=== PATIENT | male | born 1960 | race Caucasian/White ===

== ENCOUNTER → 2021-09-04 | Day surgery (SDC) | payer OTHER ==
[~2021-09-04] VITALS: Ht 182.9 cm; Wt 113.4 kg
[~2021-09-04] MED LIST: AMLODIPINE BESYL5 MG PO; COLESTIPOL HCL1 GM PO; LISINOPRIL-HCT1 EAC2 PO
== END | disposition home or self-care (01) ==
LOC: FAS 06:00
DX: R19.7 Diarrhea, unspecified (principal); D12.2 Benign neoplasm of ascending colon; D12.5 Benign neoplasm of sigmoid colon; D12.8 Benign neoplasm of rectum; K64.4 Residual hemorrhoidal skin tags; K57.30 Diverticulosis of large intestine without perforation or abscess without bleeding; Z80.0 Family history of malignant neoplasm of digestive organs; Z86.010 Personal history of colon polyps; Z72.89 Other problems related to lifestyle
CPT/HCPCS: J2250; J2704; J7120